=== PATIENT | female | born 1990 | race African-American/Black ===

== ENCOUNTER 2019-11-21 20:30 | Emergency (ER) | payer MEDICAID, OTHER ==
[~2019-11-21] VITALS: Ht 167.6 cm; Wt 82.0 kg
[2019-11-21] MEDS ORDERED: TETANUS, DIPHTHERIA, PERTUSSIS VAC/PF 0.5ML (>7YR OLD) IM ONE (22:15)
[2019-11-21] MEDS ORDERED: LIDOCAINE 1%/EPI 1:100,000 10 ML VIAL IJ ONE (22:15)
[2019-11-21] MEDS ORDERED: IBUPROFEN 600MG TABLET PO ONE (22:15)
[2019-11-21] MEDS ORDERED: CEPHALEXIN 250MG CAPSULE PO ONE (22:30)
[2019-11-21] MEDS ORDERED: SULFAMETHOXAZOLE/TRIMETHOPRIM 800/160MG TABLET PO ONE (22:30)
[2019-11-21 22:57] VITALS: BP 104/71
== END 2019-11-21 23:41 | disposition home or self-care (01) ==
LOC: ER 20:30
DX: L73.9 Follicular disorder, unspecified (principal); N75.1 Abscess of Bartholin's gland
CPT/HCPCS: 56420; 90471; 90715; 99284; J3490